=== PATIENT | male | born 1935 | race Caucasian/White ===

== ENCOUNTER 2018-04-15 05:49 | Inpatient (IN) | payer MEDICARE, OTHER ==
[2018-04-15] MEDS ORDERED: Ondansetron ODT 4 MG TAB ONE (06:52)
[2018-04-15] MEDS ORDERED: Mag-Al 1200 mg/1200 mg/30 ML UDCUP ONE ×3 (06:52→06:56)
[2018-04-15] MEDS ORDERED: Lidocaine Viscous Sol 2% 15 ml UD Cup ONE ×2 (06:53→09:50)
--- NOTE | 2018-04-15 08:21 | RAD ---
CHEST ONE VIEW: ABDOMEN TWO VIEWS: HISTORY: An 83-year-old male with a history of diarrhea. Medication reaction. FINDINGS: No significant acute intrathoracic disease. No free intraperitoneal air. Abnormally dilated small b owel loops with air-fluid levels, evidence for small bowel obstruction. Only minimal scattered gas a nd fecal material in a nondistended colon. No overt calculus. IMPRESSION: Abnormally dilated small bowel loops, evidence for small bowel obstruction. POS: [facility]
[2018-04-15 08:36] LABS: Hemoglobin 8.8 g/dL (14.0-18.0); Mean Corpuscular HGB CONC 30.9 g/dL (32.0-36.0); Mean Corpuscular Hemoglobin 22.5 pg (27.0-31.0); Mean Corpuscular Volume 72.7 fL (78.0-98.0); Mean Platelet Volume 6.5 fL (7.4-10.4); Platelet Count 435 thou/uL (130-400); RBC Distribution Width 15.5 % (11.5-14.5); White Blood Cell (WBC) Count 16.8 thou/uL (4.8-10.8)
[2018-04-15 08:49] LABS: ALT (SGPT) 45 U/L (8-55); AST (SGOT) 45 U/L (5-34); Albumin 3.8 g/dL (3.4-4.8); Alkaline Phosphatase 64 U/L (40-150); Anion Gap 19 mmol/L (10-20); BUN (Urea Nitrogen) 13 mg/dL (8.4-25.7); Bilirubin, Total 0.6 mg/dL (0.2-1.2); Calc. Creatinine Clearance 0 mL/min (70-130); Calcium 9.1 mg/dL (7.8-10.44); Carbon Dioxide 19 mmol/L (23-31); Chloride 95 mmol/L (98-107); Estimated GFR-MDRD 67; Globulin 2.5 g/dL (2.4-3.5); Glucose 133 mg/dL (83-110); Potassium 3.4 mmol/L (3.5-5.1); Protein, Total 6.3 g/dL (5.8-8.1); Sodium 130 mmol/L (136-145)
[2018-04-15 08:58] LABS: Band 20 % (5-11); Hypochromia SLIGHT = 6-15 cells (100X) (0-5/hpf); Lymphocytes 4 % (21-51); MDiff Complete? YES; Microcytosis SLIGHT = 6-15 cells (100X) (0-5/hpf); Monocytes 9 % (0-10); Neutrophil 67 % (42-75); PLT Morphology Comment Appears Increased; Polychromasia SLIGHT = 2-3 cells (100X) (0-2/hpf); Vacuoles SLIGHT
[2018-04-15] MEDS ORDERED: Ondansetron HCl/PF 4 MG/2 ML Vial ONE (09:49)
--- NOTE | 2018-04-15 10:17 | CT ---
CT ABDOMEN AND PELVIS WITH CONTRAST: Date: 04/15/18 HISTORY: Constipation. FINDINGS: Mild scarring in lung bases. There is contrast reflected through the esophagus. The GE junction is op en. There is a fat-containing ventral hernia. There are numerous dilated loops of small bowel, with transition point in the right lower quadrant, s eries 6, image 73. The small bowel loops measure up to 4.6 cm. There is small volume mesenteric fluid . 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 No free intraperitoneal gas. The aortoiliac contour is nonaneurysmal. Moderate atherosclerotic plaque. Numerous hypodensities of the liver are present. No retroperitoneal adenopathy. Spleen is unremarkable. Pancreas is unremarkable. IMPRESSION: Small bowel obstruction with transition point in the right lower quadrant of the abdomen with coordin ates above. Small bowel measures up to 4.6 cm with low grade mesenteric fluid. Surgical consultation is advised. POS: [facility]
--- NOTE | 2018-04-15 10:29 | RAD ---
SINGLE VIEW UPPER ABDOMEN: Date: 04/15/18 COMPARISON: Chest x-ray dated 02/02/14. HISTORY: NG tube placement. FINDINGS: Single view of the upper abdomen shows a NG tube with its tip in the stomach. There is a nonobstructe d bowel gas pattern. IMPRESSION: NG tube located in stomach. POS: [facility]
[2018-04-15] MEDS ORDERED: ISOVUE-370 76%-LOCM 1 ML ONE (10:50)
[2018-04-15] MEDS ORDERED: Iopamidol 370 76% 50 ML VIAL FS ONE (10:50)
[2018-04-15] MEDS ORDERED: Ondansetron HCl/PF 4 MG/2 ML Vial IVP PRN ×2 (12:50→16:07)
[2018-04-15] MEDS ORDERED: Acetaminophen 325 MG TAB PO PRN (12:51)
[2018-04-15] MEDS ORDERED: Ondansetron ODT 4 MG TAB PO PRN (12:51)
[2018-04-15] MEDS ORDERED: Sodium Chloride 0.9% 1,000 ML IV SCH (13:00)
--- NOTE | 2018-04-15 13:13 | HP ---
ADMITTING PHYSICIAN: Iker Galo M.D. HISTORY OF PRESENT ILLNESS: The patient is an 83-year-old male [facility] abdominal pain and discomfort. He felt like he has had problems now for several weeks. He was seen and evaluated by my partner, Dr. Diaz 1 week ago, p laced on Flagyl and Levaquin. He has continued to have difficulties and problems, specifically with nausea, no bowel movements, lack of gas. He was brought to the emergency room with increasing pain, increasing abdominal girth. He was seen and evaluated in the ER, found to have a small-bowel obstruc tion. He notes no other medical symptoms. No chest pain, shortness of breath, fever, nausea. No vo miting otherwise, but he definitely notes he has not had any type of bowel activity for the last 2-3 days now. ALLERGIES: He states PREDNISONE makes him feel loopy. Otherwise, no other allergies are noted. CURRENT MEDICATIONS: Lyrica 75 mg daily, finasteride 1 tablet daily, tamsulosin 1 tablet daily, amlo dipine 10 mg daily, hydrochlorothiazide 12.5 mg daily, aspirin 81 mg daily. PAST MEDICAL HISTORY: Positive for multiple facial skin cancer surgeries as well as a nasal surgery. Medical history positive for hypertension, history of shingles, benign prostatic hypertrophy, gastr oesophageal reflux disease. SOCIAL AND PERSONAL HISTORY: He is a . He does not smoke nor does he drink alcohol. He does live with his son here in [facility]. PHYSICAL EXAMINATION: VITAL SIGNS: BP 147/69, pulse 93, respirations 18, temperature 99.1, O2 sats 93%. GENERAL: He is alert, active, does not appear in any distress. HEENT: Normocephalic, atraumatic. Sclerae and conjunctivae are clear. NECK: Supple, full range of motion, no masses. LUNGS: Reveal bilateral breath sounds without wheezes, rales or rhonchi. HEART: Regular rate and rhythm without murmurs, gallops or rubs. ABDOMEN: Distended, protuberant. Bowel sounds are not present. There is no evidence of significant abdominal tenderness. He has slightly increased tympanitic sounds. EXTREMITIES: No clubbing, edema or cyanosis. LABORATORY DATA: White blood count 16.8, hemoglobin 8.8, hematocrit 28.4. Sodium 130, potassium 3.4 , chloride 95, CO2 19, BUN 13, creatinine 1.06. Stool guaiac is negative. IMPRESSION: 1. An 83-year-old male with small-bowel obstruction. 2. Anemia of unknown etiology. PLAN: 1. The patient has had a surgical consult placed with Dr. Franco. 2. He has had an NG tube suction and placed. Further surgical management will be detailed by the ferrara rgical consult. 3. IV fluids have been started. 4. With regards to his anemia, further workup may be deemed to be necessary. 5. It is noted the patient adamantly denies any history of blood per stool or melena at this time.
[2018-04-15 13:30] LABS: Lactic Acid 2.2 mmol/L (0.5-2.2)
[2018-04-15] MEDS: Sodium Chloride 0.9% 1,000 ML IV SCH ×2 (13:36→20:20)
[2018-04-15] MEDS ORDERED: Ondansetron ODT 4 MG TAB SL PRN (16:07)
--- NOTE | 2018-04-15 17:32 | PDOC.GSCN ---
Surgery Consult: [facility] - Consult details Date: 04/15/18 Time: 14:00 Reason for consult: small bowel obstruction Requesting physician: Iker Galo History of present illness: Mr Vega is an 83 yo male who presented to [facility] ER overnight with a cc of diarrhea, fatigue and nausea. Per pt his symptoms started approximately 2 weeks ago after eating pizza that he thought was bad. He noticed a change in his stool caliber, and diarrhea started shortly thereafter. He failed a trial of immodium and PPI and started abx from his PCP Fri. On Friday his diarrhea ceased and pt has not had a bowel movement since that time. He is unsure of when he last passed gas, but thinks there was some yesterday (04/14). Pt states nausea has been persistent and prevented him from sleep so he presented to the ER. Additionally the patient reports increasing abdominal distention, worsening fatigue and an 8lb weight loss. He denies fever, chills, cp, shortness of breath, barnard, hematochezia, melena, change in urinary habits. He was evaluated in the ER and found to have evidence of bowel obstruction on CT with air fluid levels and a transition point in the RLQ. Pt was admitted by medicine service and surgery was consulted 04/15/18 17:03 Surgery Consult: ROS - Review of Systems All systems: 10 systems reviewed and no additional complaints unless stated below. Surgery Consult: [facility] Source: patient Past Medical History: HTN, asthma, skin cancer s/p resection, BPH, GERD Past Surgical History: Nasal surgery, skin cancer removal. Pt specifically denied any history of abdominal surgery - Past Family History Family history: reviewed and not pertinent (Pt denied family history of cancer) - Past Social History Smoking Status: Never smoker Alcohol Use: none Living Situation: other (Pt lives with son) Surgery Consult: Exam - Vital signs Vital signs: Vital Signs - Most Recent Temp Pulse Resp BP Pulse Ox 98.4 F 84 16 121/69 94 L 04/15/18 15:31 04/15/18 15:31 04/15/18 15:31 04/15/18 12:45 04/15/18 15:31 - Physical Exam General: no distress, other (resting in bed) Eye: PERRL ENT: other (NGT in place) Neck: trachea midline Respiratory: clear to auscultation, normal expansion, normal respiratory effort Abdomen: non tender, soft, tender (Minimal RLQ pain), distended, other (no masses, signs of peritonitis, guarding or rigidity) Neurologic: other (No focal deficit is noted) Psychiatric: memory intact, oriented to time, oriented to person, oriented to place, speech is normal Surgery Consult: Meds - Medications Medications: Current Medications Acetaminophen (Tylenol) 650 mg PO Q4H PRN PRN Reason: Headache/Fever or Pain Stop: 04/15/18 23:00 Famotidine (Pepcid) 20 mg SLOW IVP BID MADHAV Sodium Chloride (Normal Saline 0.9%) 1,000 mls @ 125 mls/hr IV .Q8H MADHAV Last Admin: 04/15/18 13:36 Dose: 1,000 mls Ondansetron HCl (Zofran Odt) 4 mg SL Q8HR PRN PRN Reason: Nausea/Vomiting Ondansetron HCl (Zofran) 4 mg IVP Q6H PRN PRN Reason: Nausea/Vomiting Pneumococcal 13-Valent Conj Vacc (Prevnar) 0.5 ml IM .ONCE ONE Stop: 04/16/18 09:01 Sodium Chloride (Flush - Normal Saline) 10 ml IVF Q12HR MADHAV Sodium Chloride (Flush - Normal Saline) 10 ml IVF PRN PRN PRN Reason: Saline Flush - Allergies Allergies/Adverse Reactions: Allergies Allergy/AdvReac Type Severity Reaction Status Date / Time prednisone Allergy Verified 04/15/18 13:23 Surgery Consult: Results - Labs Result Diagrams: 04/15/18 08:19 04/15/18 08:19 Lab results: Laboratory Results WBC 16.8 thou/uL (4.8-10.8) H 04/15/18 08:19 RBC 3.90 mill/uL (4.70-6.10) L 04/15/18 08:19 Hgb 8.8 g/dL (14.0-18.0) L 04/15/18 08:19 Hct 28.4 % (42.0-52.0) L 04/15/18 08:19 MCV 72.7 fL (78.0-98.0) L 04/15/18 08:19 MCH 22.5 pg (27.0-31.0) L 04/15/18 08:19 MCHC 30.9 g/dL (32.0-36.0) L 04/15/18 08:19 RDW 15.5 % (11.5-14.5) H 04/15/18 08:19 Plt Count 435 thou/uL (130-400) H 04/15/18 08:19 MPV 6.5 fL (7.4-10.4) L 04/15/18 08:19 Neutrophils % (Manual) 67 % (42-75) 04/15/18 08:19 Band Neuts % (Manual) 20 % (5-11) H 04/15/18 08:19 Lymphocytes % (Manual) 4 % (21-51) L 04/15/18 08:19 Monocytes % (Manual) 9 % (0-10) 04/15/18 08:19 Neutrophils # Not Reportable 04/15/18 08:19 Lymphocytes # Not Reportable 04/15/18 08:19 WBC Morphology SLIGHT 04/15/18 08:19 Hypochromia SLIGHT = 6-15 cells (100X) (0-5/hpf) 04/15/18 08:19 Plt Morphology Comment Appears Increased H 04/15/18 08:19 Polychromasia SLIGHT = 2-3 cells (100X) (0-2/hpf) 04/15/18 08:19 Microcytosis SLIGHT = 6-15 cells (100X) (0-5/hpf) 04/15/18 08:19 Sodium 130 mmol/L (136-145) L 04/15/18 08:19 Potassium 3.4 mmol/L (3.5-5.1) L 04/15/18 08:19 Chloride 95 mmol/L (98-107) L 04/15/18 08:19 Carbon Dioxide 19 mmol/L (23-31) L 04/15/18 08:19 Anion Gap 19 mmol/L (10-20) 04/15/18 08:19 BUN 13 mg/dL (8.4-25.7) 04/15/18 08:19 Creatinine 1.06 mg/dL (0.6-1.3) 04/15/18 08:19 Estimated GFR (MDRD) 67 04/15/18 08:19 Glucose 133 mg/dL (83-110) H 04/15/18 08:19 Lactic Acid 2.2 mmol/L (0.5-2.2) 04/15/18 13:06 Calcium 9.1 mg/dL (7.8-10.44) 04/15/18 08:19 Total Bilirubin 0.6 mg/dL (0.2-1.2) 04/15/18 08:19 AST 45 U/L (5-34) H 04/15/18 08:19 ALT 45 U/L (8-55) 04/15/18 08:19 Alkaline Phosphatase 64 U/L (40-150) 04/15/18 08:19 Serum Total Protein 6.3 g/dL (5.8-8.1) 04/15/18 08:19 Albumin 3.8 g/dL (3.4-4.8) 04/15/18 08:19 Globulin 2.5 g/dL (2.4-3.5) 04/15/18 08: Albumin/Globulin Ratio 1.5 g/dL (1.2-2.2) 04/15/18 08:19 - Radiology Interpretation Abdominal x-ray Status: image reviewed by me (Images reviewed by myself and Dr Franco), report reviewed by me CT scan - abdomen Status: image reviewed by me (Image reviewed by myself and Dr Franco), report reviewed by me Surgery Consult: A/P - Problem (1) Bowel obstruction Current Visit: Yes Code(s): K56.609 - UNSP INTESTNL OBST, UNSP TO PARTIAL VERSUS COMPLETE OBST Status: Acute - Plan Plan: Keep NGT to LIS. Pt should remain NPO. Continue IVF hydration. Pts presentation , history and imaging suspicious for obstructive mass. Dr Franco has spoken with GI who recommends bowel rest overnight and plans for gentle bowel prep in AM. AM labs. PRN antinausea meds. Will continue to follow closely. Pt has been seen and examined by Dr Franco and myself.
[2018-04-15] MEDS: Famotidine/PF 20 mg/2ml Vial SLOW IVP SCH (20:14)
[2018-04-16] MEDS: Sodium Chloride 0.9% 1,000 ML IV SCH ×2 (00:52→14:46)
[2018-04-16 04:36] LABS: #Eosinphils 0.2 thou/uL (0.0-0.7); #Lymphocytes 1.3 thou/uL (1.20-3.40); #Monocytes 1.3 thou/uL (0.11-0.59); #Neutrophils 10.3 thou/uL (1.40-6.50); %Basophils 0.2 % (0.0-1.0); %Eosinophils 1.5 % (0.0-10.0); %Lymphocytes 9.6 % (21.0-51.0); %Monocytes 9.7 % (0.0-10.0); Hemoglobin 8.1 g/dL (14.0-18.0); Mean Corpuscular Hemoglobin 22.7 pg (27.0-31.0); Mean Corpuscular Volume 73.2 fL (78.0-98.0); Mean Platelet Volume 6.5 fL (7.4-10.4); Platelet Count 405 thou/uL (130-400); RBC Distribution Width 15.7 % (11.5-14.5); Red Blood Cell (RBC) Count 3.56 mill/uL (4.70-6.10)
[2018-04-16 05:05] LABS: Anion Gap 11 mmol/L (10-20); BUN (Urea Nitrogen) 9 mg/dL (8.4-25.7); Calc. Creatinine Clearance 61 mL/min (70-130); Calcium 8.3 mg/dL (7.8-10.44); Carbon Dioxide 26 mmol/L (23-31); Chloride 100 mmol/L (98-107); Estimated GFR-MDRD 78; Glucose 93 mg/dL (83-110); Magnesium 1.9 mg/dL (1.6-2.6); Phosphorus 2.4 mg/dL (2.3-4.7); Potassium 3.2 mmol/L (3.5-5.1); Sodium 134 mmol/L (136-145)
--- NOTE | 2018-04-16 05:32 | CON ---
DATE OF CONSULTATION: 04/15/2018 REFERRING DOCTOR: Dr. Mika Franco. REASON FOR CONSULTATION: Abdominal pain, small volar flexion, and possibility of colonic mass. HISTORY OF PRESENT ILLNESS: Mr. Luis Vega is a very pleasant, 83-year-old , male with history of transient diarrhea after he ate some pizza two weeks ago. Subsequently, he was found to have abdominal pain, some nausea, and poor appetite. He is also having constipation. He initially had diarrhea for a couple of days and then became constipated. The last BM he had was last Friday about five days ago. He was passing some small flatus yesterday, but he is not passing flatus anymore. After he was seen by Dr. Chito Diaz for outpatient and was given some empiric antibiotic therapy. The patient's symptoms persisted. He has had poor appetite, not able to eat well, and has constant nausea, vague abdominal pain. He came to the ER and had abdominal x- rays, which revealed evidence of SBO. Subsequently, he was sent for abdominal CAT scan. The CAT scan again showed dilated small bowel loops, and the transition zone is supposed to be in the right lower quadrant. The patient had an NG tube placement and he put out nearly about 1500 mL of bilious material. He is still passing some bilious material in the canister. Stopped passing his flatus. He has abdominal pain at the present time. He has no more nausea. The patient gives history of poor appetite and loss of weight about 8 pounds over probably about 2 weeks. Prior 2 weeks ago, he had no GI symptoms at all whatsoever. The patient has never had a colonoscopy, and there is no family history of colon cancer. The patient had no history of melena, hematochezia, etc. He has no relevant history. ALLERGIES: Intolerance to PREDNISONE, which makes him euphoric and hyper. SOCIAL HISTORY: Patient is . He really smoked pipe many years ago. He does not smoke cigarettes. He drinks two beers everyday. MEDICAL ILLNESSES: 1. Hypertension. 2. Benign prostatic hypertrophy. 3. Chronic acid reflux. 4. Multiple skin cancer removed. 5. Elevated PSA level and had three biopsies done, which _ all were negative for malignancy. SURGERIES: No major surgeries. FAMILY HISTORY: Both parents had heart disease. No family history of lung disease, cancer, CVA, etc. MEDICATIONS: List reviewed. REVIEW OF SYSTEMS: System reviewed 10-point systems: Constitutional: History of poor appetite, weight loss of about 8 pounds. No history of fever or chills. Respiratory system: No history of chronic cough, hemoptysis, dyspnea. Cardiovascular system: No chest pain, no palpitation, no dyspnea, orthopnea, or PND. Gastrointestinal: As stated in history of present illness. Genitourinary: History of nocturia and also history of urination. Musculoskeletal/endocrine/hematological: Not relevant. PHYSICAL EXAMINATION: GENERAL: Revealed a very pleasant, male, who appears very comfortable. He is in no distress. VITAL SIGNS: He is afebrile, pulse is 79, blood pressure 132/68. HEENT: Conjunctivae clear. NECK: Supple. No adenitis or thyromegaly noted. CARDIOVASCULAR SYSTEM: First and second heart sounds normal. LUNGS: Clear to auscultation. ABDOMEN: Soft to palpate. Abdomen is mildly distended. Abdomen is nontender. He does have bowel sounds active. EXTREMITIES: Reveal no edema. LABORATORY DATA: CBC shows WBC 16,800, hemoglobin 8.8, hematocrit 28.4, MCV 72.7, platelet count 435,000, polymorphs 67, bands 20, lymphocytes 4. Serum chemistries, sodium is 130, potassium 3.4, chloride 95, bicarbonate 19, BUN is 13, creatinine 1.06, glucose 133. Lactic acid 2.5, calcium 9.1. Bilirubin 0.6 , AST 45 upper limit of normal, ALT 45, alkaline phosphatase 64, albumin 3.8. Abdominal CAT scan shows: 1. Some hypodense lesions in the liver. 2. Dilation of small bowel loops and cancer as well as in the right lower quadrant. CLINICAL IMPRESSION: 1. An 83-year-old, male with small-bowel obstruction, it is unclear _ ____ surgery. There is a possibility that could be melena or lesions of small bowel or distention of small bowel with the colon. 2. Hypertension. 3. Prostatic hypertrophy. 4. Negative for ulcer biopsies. 5. Multiple skin cancer removal. 6. Chronic acid reflux. RECOMMENDATIONS: Continue with NG tube suction. The NG output is less, may consider Gastrografin small bowel series. The patient was reprepped for a colonoscopy and the prep was very difficult to get to the cecum, ileum and prepped colon. This was conveyed to the patient, and he is agreeable. We will follow up and make further recommendations. SUSAN
--- NOTE | 2018-04-16 07:34 | PRG ---
DATE OF SERVICE: 04/16/2018 SUBJECTIVE: Mr. Vega is resting well. He is feeling more comfortable. His abdomen is less bloat ed and distended. PHYSICAL EXAMINATION: VITAL SIGNS: Temperature 98.5, blood pressure 124/70. LUNGS: Clear. ABDOMEN: Soft, less distended, appears to be nontender. LUNGS: Clear. HEART: Without murmur. Regular rate and rhythm. LABORATORY DATA: Hemoglobin 8.1, hematocrit 26.1, sodium 134, potassium 3.2, chloride 100, carbon di oxide is 26. IMPRESSION: 1. Small-bowel obstruction, appears to be improved. 2. Anemia. PLAN: 1. Further GI workup has been planned today, possible have some type of colonoscopy done. 2. Further recommendations per Surgery and GI. 3. We will address hypokalemia, change IV fluids to normal saline with potassium.
[2018-04-16] MEDS ORDERED: Magnesium Sulfate 2 GM in Sodium Chloride 0.9% 100 ML IVPB SCH (09:00)
[2018-04-16] MEDS ORDERED: Prevnar 13-Val Conj/PF 0.5 ML SYRINGE IM ONE (09:00)
[2018-04-16] MEDS: 1/2 NS w/KCL 20 mEq 1,000 ML IV SCH ×2 (10:38→16:45)
[2018-04-16] MEDS: Famotidine/PF 20 mg/2ml Vial SLOW IVP SCH ×2 (11:43→21:04)
[2018-04-16] MEDS: Potassium Chloride 20 MEQ in Premix Bag 1 BAG IVPB SCH ×2 (12:03→14:05)
--- NOTE | 2018-04-16 15:38 | PRG ---
DATE OF SERVICE: 04/16/2018. SUBJECTIVE: Mr. Vega is an 83-year-old man who was admitted yesterday with abdominal pain, bloati ng, nausea and vomiting. This was associated with 8-pound weight loss as well as incidental microcyt ic hypochromic anemia. Small-bowel obstruction has been established on the basis of CT scan and clin ical examination. The patient reports no new problems today. OBJECTIVE: VITAL SIGNS: Today includes blood pressure 132/69, pulse 63, respirations 20, temperature 98.5 degre es Fahrenheit, oxygen saturation is 92% on room air. HEENT: Reveals normocephalic and atraumatic. HEART: Reveals regular rate and rhythm, no murmurs or gallops auscultated. LUNGS: Clear to auscultation bilaterally. Breathing regular and unlabored. ABDOMEN: Soft and moderately distended. He has moderate abdominal tenderness with deep palpation wi th no gross rebound tenderness present. Liver and spleen are nonpalpable below costal margin. NEUROLOGIC: Reveals no focal deficits present. LABORATORY DATA: Today includes CBC with 13,000 white blood cells, hemoglobin and hematocrit are sta ble at 8.1 and 26.1 respectively. Platelet count is 405,000. Metabolic profile: Sodium 134, potass ium 3.2, chloride is 100, bicarbonate 26, BUN is 9, creatinine 0.92, glucose is 93, magnesium 1.9, ph osphorus 2.4. IMPRESSION: 1. Acute small-bowel obstruction in an elderly man with no previous abdominal operations. 2. Chronic anemia. 3. Acute hypomagnesemia. 4. Acute hypokalemia. 5. Acute hypophosphatemia. PLAN: 1. Continue with bowel rest and nasogastric tube decompression. 2. Correct abnormal electrolytes. 3. The patient will be taken to the operating room tomorrow for exploratory laparotomy with indicate d procedures. I have advised the patient that his findings highly suggestive of a neoplastic process . Therefore, this warrants abdominal exploration. The patient indicates understanding of the information given. He has granted consent for the propose d surgical intervention.
[2018-04-16 15:58] LABS: INR-International Normal Ratio 1.2; PTT 31.7 SEC (22.9-36.1); Prothrombin Time 15.6 SEC (12.0-14.7)
[2018-04-17] MEDS: 1/2 NS w/KCL 20 mEq 1,000 ML IV SCH ×3 (03:16→20:30)
[2018-04-17 05:02] LABS: Anion Gap 18 mmol/L (10-20); BUN (Urea Nitrogen) 9 mg/dL (8.4-25.7); Calc. Creatinine Clearance 72 mL/min (70-130); Calcium 7.9 mg/dL (7.8-10.44); Carbon Dioxide 18 mmol/L (23-31); Chloride 103 mmol/L (98-107); Estimated GFR-MDRD Greater than 90; Glucose 70 mg/dL (83-110); Potassium 4.1 mmol/L (3.5-5.1); Sodium 135 mmol/L (136-145)
[2018-04-17] MEDS ORDERED: Famotidine/PF 20 mg/2ml Vial ONE (06:48)
[2018-04-17] MEDS ORDERED: Fentanyl 250 MCG/5 ML VIAL ONE (06:48)
[2018-04-17] MEDS ORDERED: Fentanyl 100 MCG/2 ML VIAL ONE ×4 (06:48→10:59)
[2018-04-17] MEDS ORDERED: Ertapenem 1 GM in Sodium Chloride 0.9% 100 ML IVPB SCH (07:15)
--- NOTE | 2018-04-17 08:13 | PRG ---
DATE OF SERVICE: 04/16/2018 HISTORY OF PRESENT ILLNESS: This is an 83-year-old, male admitted with abdominal pain, nausea, and vomiting, unable to assess by CAT scan. An NG tube is draining mostly bilious material. He is now passing flatus. He has abdominal pain. Initial plan was for him to have colonoscopy and possibly surgery. Because of a large volume of NG output, the patient is not able to have gastrograffin study.. He is also passing flatus. Dr. Franco talked to me this morning and informed me that he is planning to take him to surgery tomorrow. PHYSICAL EXAMINATION: GENERAL: He appears very comfortable. VITAL SIGNS: Afebrile. Pulse is 86, blood pressure 146/72. CARDIOVASCULAR SYSTEM: First and second heart sounds normal. ABDOMEN: Soft. Abdomen is more distended, but not soft, and nontender. He does have bowel sounds. LABORATORY DATA: The lab data today shows WBC 13,000, hemoglobin 8.1, hematocrit 26.1, MCV is 73.2. Chemistry panel: Sodium 134, potassium 3.2, chloride 100, bicarbonate 26, BUN is 6, creatinine 0.92, glucose is 93, calcium 8.3, phosphate 2.4, magnesium 1.9. PLAN: 1. Continue NG suction. 2. Laparotomy by Dr. Franco tomorrow. [facility]
[2018-04-17] MEDS ORDERED: Ondansetron HCl/PF 4 MG/2 ML Vial IVP PRN (09:25)
[2018-04-17] MEDS ORDERED: Promethazine HCl 25 MG/ML VIAL IM PRN (09:25)
[2018-04-17] MEDS ORDERED: Promethazine HCl 25 MG/ML VIAL SLOW IVP PRN (09:25)
--- NOTE | 2018-04-17 10:58 | OP ---
DATE OF OPERATION: 04/17/2018. PREOPERATIVE DIAGNOSES: 1. Acute small-bowel obstruction. 2. Hypochromic microcytic anemia associated with weight loss. POSTOPERATIVE DIAGNOSES: 1. Acute small-bowel obstruction. 2. Hypochromic microcytic anemia associated with weight loss. OPERATIONS PERFORMED: 1. Exploratory laparotomy. 2. Segmental small bowel resection with primary anastomosis. 3. 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 SURGEON: Mika Franco D.O. ANESTHESIA: General endotracheal. ESTIMATED BLOOD LOSS: 50 mL FLUIDS GIVEN: 1500 mL crystalloids. SPONGE AND INSTRUMENT COUNT: Certified as correct x2. COMPLICATIONS: None apparent at the time of operation. INDICATIONS FOR PROCEDURE: An 83-year-old man with no previous abdominal operations who presented to the emergency department with insidious onset abdominal pain associated with bloating, nausea, vomit ing, 8 pound weight loss and microcytic hypochromic anemia. CT scan of the abdomen and pelvis reveal ed distended loops of proximal small bowel with a clear transition zone. The patient was placed on b owel rest with nasogastric tube decompression for over 48 hours with no resolution. The NG tube was having a large output succus entericus of bilious content. Due to the fact that this patient has had no previous abdominal operations in the face of acute small-bowel obstruction, weight loss and anemi a, an obstructive neoplastic process was suspected for which the patient was brought to the operating room for laparotomy. 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 I did not see any external bands. There was no evidence of any extrinsic compressive masses. I also o bserved and irrigated. There was nodular with a bluish discoloration of the serosa on palpation and suspected the AVM. The area was excised and passed off the operative field for pathology. DESCRIPTION OF PROCEDURE: Informed consent obtained from the patient who was brought to the operatin g room and placed on spine position. Following general anesthesia, Briceño catheter was inserted and p laced at bedside drain. Abdomen is sterilely prepped and draped in usual fashion. A midline incisio n is made using #10 scalpel. The incision is carried through subcutaneous tissues maintaining hemost asis using cautery. Fascia incised in midline exposing the peritoneum beneath, which was grasped x2 with hemostats. The peritoneal cavity was sharply entered using Metzenbaum scissors. Incision was t hen extended superiorly and inferiorly. Bookwalter retractor was put in place to gain exposure. Sma ll bowel was then run from the ligament of Treitz down to terminal ileum. In the proximal ileum, the re is a constrictive band of clear transition zone noted. No extensive compressions were evident her e. All the bowel proximal to this constrictive band were markedly dilated and distal to this constri ctive internal band, bowel was markedly decompressed. A normal appendix is noted in the usual anatom ic location. I palpated the rest of the colon from the cecum through the ascending, transverse, desc ending, sigmoid colon and rectum. No palpable masses were present. The patient, however, does have sigmoid colon diverticulosis with no evidence of acute diverticulitis. The stomach is palpated full and the previous nasogastric tube was replaced with immediate decompression of the stomach. No palpa ble masses present. Liver is palpated free of any abnormality. Normal gallbladder was palpated in t he usual anatomic location. Spleen is palpated free of any masses. Finding no other pathology, I tu rned my attention to the transition zone in the proximal ileum. I created a rent through the mesente ry of the involved segment using a hemostat. The rent is created proximal and distal to this segment through which a SABAS stapler was introduced and bowel was divided. Mesentery of the specimen is ster ilely divided between clamps and ligated with a free tie of 2-0 silk. Specimen was passed off the op erative field and forward transmission to pathology. The staple end of this bowel were approximated in a [id number] fashion using interrupted sutures of 3-0 silk. Enterotomies were made at both apic es through which free ends of SABAS stapler was introduced and a functional end-to-end, but anatomic si de-to-side enteroenterostomy was perfected. Enterostomy was closed using another load of a SABAS stapl er. Resultant mesenteric defect was closed using interrupted sutures of 2-0 silk. I then rerun the bowel from the ligament of Treitz and down to the terminal ileum. The anastomosis was quite patent. Appr oximately 30 cm from the ligament of Treitz, there is a nodular mass that is palpated in the anterior surface of the jejunum there. The serosal surface is bluish in discoloration. I suspected this to be a site of an AVM given this patient's history of chronic microcytic anemia. I opened the bowel he re longitudinally excising this specimen which was passed off the operative field and forward transmi ssion to pathology to exclude AVM. The bowel is repaired here vertically using interrupted sutures o f 3-0 silk, which was then imbricated with another layer of interrupted sutures of 3-0 silk in a Lemb ert fashion. Abdominal cavity was then copiously irrigated clear with saline. Small bowel was retur bandar to normal anatomic location. Omentum was drawn over the remainder of the viscera. All sponges a nd instruments were removed and accounted for. Fascia is approximated in the midline using a running stitch of #1 single stranded PDS. Subcutaneous tissues irrigated clear with saline solution, perfec kota hemostasis using thermocautery. Subcutaneous tissues approximated using interrupted sutures of 2 -0 Vicryl. The skin was closed with millie. Sterile dressings were applied. The patient tolerated the operation without any apparent complication and was returned to recovery room in satisfactory co ndition.
[2018-04-17] MEDS: Famotidine/PF 20 mg/2ml Vial SLOW IVP SCH ×2 (11:36→20:31)
[2018-04-17] MEDS: Piperacillin/Tazobactam 3.375 GM in Sodium Chloride 0.9% 100 ML IVPB SCH ×3 (12:09→23:27)
[2018-04-17] MEDS: Acetaminophen 1,000 MG in Premix Bag 1 BAG IVPB SCH ×3 (12:50→23:27)
[2018-04-17] MEDS ORDERED: Glycopyrrolate 0.2 MG/ML 5 ML SYRINGE ONE (14:29)
[2018-04-17] MEDS ORDERED: PROPOFOL 200 MG/20 ML VIAL ONE (14:29)
[2018-04-17] MEDS ORDERED: Succinylcholine Chloride 20 MG/ML 10 ml SYRINGE FS ONE (14:29)
[2018-04-17] MEDS ORDERED: Ketorolac Tromethamine 30 MG/ML VIAL ONE (14:29)
[2018-04-17] MEDS ORDERED: Lidocaine 1% PF 5 ML VIAL ONE (14:29)
[2018-04-17] MEDS ORDERED: Ondansetron HCl/PF 4 MG/2 ML Vial ONE (14:29)
[2018-04-17] MEDS ORDERED: PHENYLEPHRINE-NS 100 MCG/ML 10 ML SYRINGE ONE (14:29)
--- NOTE | 2018-04-17 16:35 | PRG ---
DATE OF SERVICE: 04/17/2018 SUBJECTIVE: Mr. Vega has undergone surgery today for his bowel obstruction. Operative report see med to indicate that this was not related to any type of cancerous process. He arterial venous malformation causing problems. Nonetheless, he is back on the floor. He is awake and alert. He caceres s no complaints. PHYSICAL EXAMINATION: VITAL SIGNS: Temperature 98.2, pulse 89, respirations 18, O2 sats 93, blood pressure 133/69. LUNGS: Clear. HEART: Reveals no murmur. ABDOMEN: Somewhat distended, but soft. IMPRESSION: 1. Status post resection for small-bowel obstruction. 2. Anemia. PLAN: Continue current medical care. Surgery is at this time. Dr. Love will follow for m e through the weekend.
[2018-04-18 05:56] LABS: Anion Gap 19 mmol/L (10-20); BUN (Urea Nitrogen) 10 mg/dL (8.4-25.7); Calc. Creatinine Clearance 70 mL/min (70-130); Calcium 7.5 mg/dL (7.8-10.44); Carbon Dioxide 15 mmol/L (23-31); Chloride 106 mmol/L (98-107); Estimated GFR-MDRD Greater than 90; Glucose 60 mg/dL (83-110); Magnesium 1.8 mg/dL (1.6-2.6); Phosphorus 2.5 mg/dL (2.3-4.7); Potassium 4.5 mmol/L (3.5-5.1); Sodium 135 mmol/L (136-145)
[2018-04-18] MEDS: Piperacillin/Tazobactam 3.375 GM in Sodium Chloride 0.9% 100 ML IVPB SCH (06:48)
[2018-04-18] MEDS: Acetaminophen 1,000 MG in Premix Bag 1 BAG IVPB SCH ×2 (06:48→11:32)
[2018-04-18] MEDS ORDERED: Dextrose 5% in Water 1,000 ML IV PRN (07:29)
[2018-04-18 08:18] LABS: Band 12 % (5-11); Hemoglobin 8.4 g/dL (14.0-18.0); Lymphocytes 6 % (21-51); MDiff Complete? YES; Mean Corpuscular HGB CONC 30.5 g/dL (32.0-36.0); Mean Corpuscular Hemoglobin 22.8 pg (27.0-31.0); Mean Corpuscular Volume 74.6 fL (78.0-98.0); Microcytosis SLIGHT = 6-15 cells (100X) (0-5/hpf); Monocytes 6 % (0-10); Neutrophil 76 % (42-75); Ovalocytes SLIGHT = 2-5 cells (100X) (0-1/hpf); Platelet Count 429 thou/uL (130-400); RBC Distribution Width 15.9 % (11.5-14.5); Red Blood Cell (RBC) Count 3.69 mill/uL (4.70-6.10); Schistocytes SLIGHT = 2-5 cells (100X) (0-1/hpf); Toxic Granulation SLIGHT
[2018-04-18] MEDS: Famotidine/PF 20 mg/2ml Vial SLOW IVP SCH ×2 (08:54→21:15)
[2018-04-18] MEDS: Tamsulosin HCl 0.4 MG CAP PO SCH (08:54)
[2018-04-18] MEDS: 1/2 NS w/KCL 20 mEq 1,000 ML IV SCH (08:54)
--- NOTE | 2018-04-18 12:21 | PRG ---
DATE OF SERVICE: 04/18/2018 CONSULTING PHYSICIAN: Dr. Iker Galo. Postop day #1 for small bowel resection. SUBJECTIVE: The patient feels well. He feels sore, but denies chest pain, nausea and vomiting, tole rating the NG tube. He feels like he is having a gas movement, but not passing gas, no bowel movemen t. He is still n.p.o. at this time. PHYSICAL EXAMINATION: VITAL SIGNS: Temperature 97.9, pulse of 91, respirations 16, blood pressure 122/70, pulse ox is 97% on room air. GENERAL: He is awake and alert, in no acute distress. HEENT: Mucosa is moist. NECK: Supple. HEART: Regular rate and rhythm. LUNGS: Clear. ABDOMEN: Soft. Incisional soreness. Decreased bowel sounds. EXTREMITIES: With trace edema. LABORATORY DATA: Sodium 135; potassium 4.5; chloride 106; CO2 of 15, down from 18 yesterday; BUN and creatinine 10 and 0.81; serum glucose is 60, up to 79 with D5 fluid. Lactic acid was down to 2.2, c alcium 7.5, but his last albumin was 3.8. White blood cell count 19,000 today, hemoglobin and hemato crit 8.4 and 27.5 with microcytic indices, platelets of 429. ASSESSMENT AND PLAN: This is an 83-year-old gentleman, admitted for acute small-bowel obstruction, n ow status post small bowel resection. 1. Postoperative measures as per Dr. Franco and surgical team. We will continue NG decompression unt il his postoperative ileus resolves. 2. Microcytic-hypochromic anemia. We will continue to monitor. 3. Hypoglycemia, secondary to n.p.o. status. We will change fluids to D5 half normal saline. Furth er plan as per Surgery.
--- NOTE | 2018-04-18 13:52 | PRG ---
DATE OF SERVICE: 04/18/2018 SUBJECTIVE: This is an 83-year-old gentleman whom we are seeing in consultation for a small-bowel ob struction. The patient is postop day #1 status post exploratory laparotomy, segmental small bowel re section with primary anastomosis and excision of possible small bowel AVM. There were no acute overn ight events. Upon my evaluation this morning, the patient states that his pain is controlled. He caceres s had no nausea or vomiting. OBJECTIVE: VITAL SIGNS: Temperature 98.4, pulse 83, respirations 16, O2 sat 96% on room air, blood pressure 146 /73. GENERAL: Elderly male in no acute distress, resting in bed. HEENT: NG tube is in place and functioning. NECK: Supple. Trachea is midline. CHEST: Normal work of breathing. Symmetric rise. PULMONARY: 1500 on incentive spirometry. CARDIOVASCULAR: Regular rate and rhythm. GASTROINTESTINAL: Abdomen is soft with generalized minimal tenderness. Surgical dressing is clean, dry, and intact. Bowel sounds are positive. MUSCULOSKELETAL: Moves all extremities x4. NEUROLOGIC: No focal deficit noted. LABORATORY DATA: WBC 19.0, hemoglobin 8.4, hematocrit 27.5, platelet count 429, neutrophils 76, band s, 12%. Sodium 135, potassium 4.5, chloride 106, carbon dioxide 15, BUN 10, creatinine 0.81, glucose 79. Phosphorus 2.5, magnesium 1.8. Urine output overnight 750 mL, NG tube output 300 mL ASSESSMENT: Status post small-bowel obstruction, status post exploratory laparotomy, small bowel res ection with primary anastomosis and excision of AVM. PLAN: Continue NG tube to low intermittent suction. Encourage mobility and incentive spirometry. R echeck a.m. labs. The patient should remain n.p.o. for now. Await return of bowel function. Follow up pathology. Plan of care was discussed with the patient at bedside and all questions were answere d at the time of this dictation. The patient was discussed with attending.
[2018-04-18] MEDS: Dextrose 5 %-0.45 % NaCl 1,000 ML IV SCH (16:33)
[2018-04-18] MEDS: Enoxaparin Sodium 40 MG/0.4 ML SYRINGE SC SCH (21:15)
[2018-04-19] MEDS: Dextrose 5 %-0.45 % NaCl 1,000 ML IV SCH ×4 (02:33→23:09)
[2018-04-19 05:49] LABS: Anion Gap 10 mmol/L (10-20); BUN (Urea Nitrogen) 6 mg/dL (8.4-25.7); Calc. Creatinine Clearance 79 mL/min (70-130); Calcium 7.3 mg/dL (7.8-10.44); Carbon Dioxide 21 mmol/L (23-31); Chloride 105 mmol/L (98-107); Estimated GFR-MDRD Greater than 90; Glucose 126 mg/dL (83-110); Magnesium 1.8 mg/dL (1.6-2.6); Potassium 3.7 mmol/L (3.5-5.1); Sodium 132 mmol/L (136-145)
[2018-04-19 06:40] LABS: #Eosinphils 0.2 thou/uL (0.0-0.7); #Lymphocytes 1.2 thou/uL (1.20-3.40); #Neutrophils 13.6 thou/uL (1.40-6.50); %Basophils 0.1 % (0.0-1.0); %Eosinophils 1.3 % (0.0-10.0); %Lymphocytes 7.2 % (21.0-51.0); %Monocytes 6.4 % (0.0-10.0); %Neutrophils 85.1 % (42.0-75.0); Hemoglobin 7.9 g/dL (14.0-18.0); MDiff Complete? YES; Mean Corpuscular HGB CONC 29.6 g/dL (32.0-36.0); Mean Corpuscular Hemoglobin 21.9 pg (27.0-31.0); Mean Platelet Volume 6.1 fL (7.4-10.4); Microcytosis SLIGHT = 6-15 cells (100X) (0-5/hpf); Platelet Count 428 thou/uL (130-400); RBC Distribution Width 15.8 % (11.5-14.5)
[2018-04-19 07:56] LABS: ALT (SGPT) 20 U/L (8-55); AST (SGOT) 12 U/L (5-34); Albumin 2.9 g/dL (3.4-4.8); Alkaline Phosphatase 52 U/L (40-150); Anion Gap 10 mmol/L (10-20); BUN (Urea Nitrogen) 6 mg/dL (8.4-25.7); Bilirubin, Total 0.3 mg/dL (0.2-1.2); Calc. Creatinine Clearance 78 mL/min (70-130); Calcium 7.6 mg/dL (7.8-10.44); Carbon Dioxide 23 mmol/L (23-31); Chloride 104 mmol/L (98-107); Estimated GFR-MDRD Greater than 90; Glucose 137 mg/dL (83-110); Potassium 3.8 mmol/L (3.5-5.1); Protein, Total 4.9 g/dL (5.8-8.1); Sodium 133 mmol/L (136-145)
[2018-04-19 08:28] LABS: Magnesium 1.9 mg/dL (1.6-2.6)
--- NOTE | 2018-04-19 08:29 | PRG ---
PRIMARY CARE PHYSICIAN: Dr. Iker Galo. Postop day #2 for small bowel resection. SUBJECTIVE: The patient feels well. Continues to have some soreness, but denies chest pain, shortne ss of breath, nausea or vomiting. He feels rumbling in his abdomen, but not passing gas, no bowel mo vement. Still n.p.o. at this time. OBJECTIVE: VITAL SIGNS: Temperature 98.8, pulse of 88, respirations 18, blood pressure 148/78, pulse ox is 97% on room air. GENERAL: He is awake and alert, in no acute distress. NG tube appears to be in place to low intermi ttent suction. I's and O's are 2660 in, 1550 out. HEENT: Mucosa is moist. NECK: Supple. HEART: Regular rate and rhythm. LUNGS: Clear. ABDOMEN: Soft, occasional bowel sounds. Incisional soreness. EXTREMITIES: No edema. LABORATORY DATA: Sodium 133, potassium 3.8, chloride 104, CO2 of 23, BUN and creatinine are 6 and 0. 73, serum glucose of 137. Phosphorus level this morning was 1.0 with magnesium of 1.8, phosphorus is being repeated at this time. Albumin is 2.9. White blood cell count 16,000, hemoglobin and hematoc rit are 7.9 and 26.6 with microcytic indices, platelets of 428. ASSESSMENT AND PLAN: This is an 83-year-old gentleman with acute small-bowel obstruction, now status post small bowel resection. 1. Postoperative measures as per Dr. Franco and surgical team. Continue NG tube until his ileus reso lved. 2. Anemia. We will continue to monitor and consider transfusion if continues to drop. 3. Hypoglycemia, has resolved with dextrose in his IV fluids. 4. Hypophosphatemia, rechecking phosphate level now as well as vitamin D and intact PTH, likely seco ndary to n.p.o. status, as well as NG suction. I will replace as needed.
[2018-04-19] MEDS ORDERED: Potassium Phosphate 30 MMOL in Sodium Chloride 0.9% 500 ML IVPB SCH (08:30)
[2018-04-19] MEDS ORDERED: Furosemide 40 MG/4 ML VIAL SLOW IVP SCH (08:30)
[2018-04-19] MEDS: Tamsulosin HCl 0.4 MG CAP PO SCH (08:44)
[2018-04-19] MEDS: Famotidine/PF 20 mg/2ml Vial SLOW IVP SCH ×2 (08:44→20:50)
--- NOTE | 2018-04-19 10:36 | PRG ---
DATE OF SERVICE: 04/19/2018 SUBJECTIVE: Mr. Vega is an 83-year-old man who is postoperative day #2 status post exploratory la parotomy, segmental small bowel resection and primary anastomosis. Patient reports adequate pain con trol. He is having normal urinary function. He denies passing any flatus or having any bowel moveme nt. Denies any nausea or vomiting. Nasogastric tube returns 400 mL in the last 24 hours consisting of bilious effluent. OBJECTIVE: VITAL SIGNS: This morning includes blood pressure 138/75, pulse is 98, respirations 20, temperature is 98.5 degrees Fahrenheit, oxygen saturation is 98% on 2 liters by nasal cannula oxygen. HEART: Reveals regular rate and rhythm. No murmurs or gallops auscultated. LUNGS: Clear to auscultation bilaterally. Breathing is regular and unlabored. ABDOMEN: Soft and moderately distended. Incision is intact, clean, and dry. He has incisional tend erness to palpation with no rebound tenderness present. Bowel sounds in all four quadrants appear no rmoactive. EXTREMITIES: Reveals 2+ radial and pedal pulses bilaterally. No ankle edema is present. NEUROLOGIC: Examination reveals no focal deficits present. LABORATORY DATA: Laboratory findings today include CBC with 16,000 white blood cells, down from 19,0 00 yesterday. Hemoglobin and hematocrit are 7.9 and 26.6 respectively. Platelet count is 428,000. Metabolic profile; sodium 133, potassium 3.8, chloride is 104, bicarbonate is 23, BUN 6, creatinine 0 .73, glucose 137, magnesium is 1.9, phosphorus is 1.0. IMPRESSION: 1. Postoperative day #2, status post exploratory laparotomy and segmental small bowel resection. 2. Acute hypophosphatemia. 3. Acute hypokalemia. 4. Acute hypomagnesemia. 5. Chronic anemia. PLAN: 1. Correct abnormal electrolytes. 2. Patient will be transfused with 1 unit of packed red blood cell. 3. Patient will be provided with gentle diuresis today. 4. We will increase activity per physical and occupational therapy. Note that the blood transfusion is warranted as patient is complaining of profound fatigue. 5. His tiredness has been dated preoperatively due to his chronic anemia. 6. Once his bowel function returns, iron supplementation will be initiated. We will discontinue Fol ey catheter later today.
[2018-04-19 15:14] LABS: Hemoglobin 9.8 g/dL (14.0-18.0)
[2018-04-19] MEDS: Enoxaparin Sodium 40 MG/0.4 ML SYRINGE SC SCH (20:45)
[2018-04-20] MEDS ORDERED: Sodium Chloride 0.9% 500 ML IVPB SCH (01:00)
[2018-04-20] MEDS ORDERED: Sodium Chloride 0.9% 500 ML IV SCH (01:00)
[2018-04-20 05:31] LABS: #Eosinphils 0.2 thou/uL (0.0-0.7); #Lymphocytes 1.4 thou/uL (1.20-3.40); #Neutrophils 10.9 thou/uL (1.40-6.50); %Basophils 0.1 % (0.0-1.0); %Eosinophils 1.5 % (0.0-10.0); %Lymphocytes 10.4 % (21.0-51.0); %Monocytes 7.1 % (0.0-10.0); %Neutrophils 80.9 % (42.0-75.0); Hemoglobin 9.5 g/dL (14.0-18.0); Mean Corpuscular HGB CONC 31.1 g/dL (32.0-36.0); Mean Corpuscular Hemoglobin 23.6 pg (27.0-31.0); Mean Platelet Volume 6.3 fL (7.4-10.4); Platelet Count 440 thou/uL (130-400); RBC Distribution Width 19.1 % (11.5-14.5); Red Blood Cell (RBC) Count 4.02 mill/uL (4.70-6.10); White Blood Cell (WBC) Count 13.5 thou/uL (4.8-10.8)
[2018-04-20] MEDS: Dextrose 5 %-0.45 % NaCl 1,000 ML IV SCH (05:45)
[2018-04-20 06:05] LABS: ALT (SGPT) 20 U/L (8-55); AST (SGOT) 12 U/L (5-34); Albumin 2.8 g/dL (3.4-4.8); Alkaline Phosphatase 55 U/L (40-150); Anion Gap 11 mmol/L (10-20); BUN (Urea Nitrogen) 6 mg/dL (8.4-25.7); Bilirubin, Total 0.6 mg/dL (0.2-1.2); Calc. Creatinine Clearance 82 mL/min (70-130); Calcium 7.7 mg/dL (7.8-10.44); Carbon Dioxide 24 mmol/L (23-31); Chloride 102 mmol/L (98-107); Estimated GFR-MDRD Greater than 90; Globulin 2.2 g/dL (2.4-3.5); Glucose 113 mg/dL (83-110); Phosphorus 1.5 mg/dL (2.3-4.7); Potassium 3.6 mmol/L (3.5-5.1); Sodium 133 mmol/L (136-145)
[2018-04-20] MEDS ORDERED: Potassium Phosphate 30 MMOL in Sodium Chloride 0.9% 500 ML IVPB SCH (06:30)
[2018-04-20] MEDS: Acetaminophen 1,000 MG in Premix Bag 1 BAG IVPB SCH ×3 (08:28→20:39)
[2018-04-20] MEDS: Pantoprazole 40 MG VIAL IVP SCH (08:28)
[2018-04-20] MEDS: Tamsulosin HCl 0.4 MG CAP PO SCH (08:29)
--- NOTE | 2018-04-20 10:55 | PRG ---
DATE OF SERVICE: 04/20/2018 SUBJECTIVE: Mr. Vega is an 83-year-old man who is postoperative day #3 status post exploratory la parotomy and segmental small bowel resection. The patient reports adequate pain control this morning . He denies any nausea or vomiting. Nasogastric tube has returned 250 mL of slightly bile-tinged fl uid over the last 24 hours. The patient denies any flatus or bowel movement meanwhile. Urinary output has been adequate. OBJECTIVE: VITAL SIGNS: This morning includes blood pressure 150/72, pulse is 78, respiratory rate is 24, tempe rature is 98.3 degrees Fahrenheit, oxygen saturation is 98% on room air. HEENT: Reveals normocephalic and atraumatic. Pupils are equal, round, reactive to light and accommo dation. Patient has no jugular venous distention noted. HEART: Reveals regular rate and rhythm, no murmurs or gallops auscultated. LUNGS: Clear to auscultation bilaterally. His breathing is regular and unlabored. ABDOMEN: Soft with incisional tenderness to palpation. He has no gross rebound tenderness present. The incision otherwise remains intact, clean, and dry. NEUROLOGIC: Examination reveals no focal deficits present. LABORATORY DATA: Pertinent laboratory findings today includes CBC with 13,500 white blood cells, hem oglobin and hematocrit at 9.5 and 30.6 respectively, platelet count is 440,000. Metabolic profile; s odium 133, potassium is 3.6, chloride is 102, bicarbonate is 24, BUN is 6, creatinine is 0.69, glucos e 113, phosphorus is 1.5. IMPRESSION: 1. Postoperative day #3 status post exploratory laparotomy and segmental small bowel resection. 2. Acute hypokalemia. 3. Acute hypophosphatemia. PLAN: 1. Correct abnormal electrolytes. 2. We will clamp the NG tube and monitor residuals every 4 hours and consider discontinuation once _ ____ output is achieved. We will resume prehospitalization medications. Above findings and plan discussed with the patient who indicates understanding of the information giv en. I answered these questions.
[2018-04-20 11:23] VITALS: BMI 25.9
--- NOTE | 2018-04-20 18:15 | PRG ---
DATE OF SERVICE: 04/20/2018 Mr. Vega is doing well postoperatively, states he has had a bowel movement today; otherwise, no ot her medical complaints. PHYSICAL EXAMINATION: LUNGS: Clear. HEART: Reveals a regular rate and rhythm without murmurs, gallops or rubs. ABDOMEN: Soft. There are some bowel sounds that are present. IMPRESSION: Status post small-bowel obstruction with excision of obstructive process. PLAN: Continue current medications.
[2018-04-20] MEDS: Enoxaparin Sodium 40 MG/0.4 ML SYRINGE SC SCH (20:39)
[2018-04-20] MEDS: Pregabalin 75 MG CAP PO SCH (20:39)
[2018-04-21] MEDS: Acetaminophen 1,000 MG in Premix Bag 1 BAG IVPB SCH (02:03)
--- NOTE | 2018-04-21 07:47 | PRG ---
DATE OF SERVICE: 04/21/2018 SUBJECTIVE: Mr. Vega is asleep. He did not arouse when I examined him, I let him sleep. PHYSICAL EXAMINATION: VITAL SIGNS: Temperature 98 degrees, pulse 80, respirations 18, O2 sats 100% on room air, blood pres sure 140/78. LUNGS: Clear. HEART: Reveals no murmur. HEENT: NG tube has been removed. ABDOMEN: The bowel sounds are present and active. IMPRESSION: Status post small-bowel obstruction with exploratory laparotomy and bowel resection. PLAN: 1. Continue current care. 2. Hopefully can discharge soon.
[2018-04-21] MEDS ORDERED: traMADol HCl 50 MG TAB PO PRN ×2 (07:54)
[2018-04-21] MEDS: Pregabalin 75 MG CAP PO SCH ×2 (08:28→20:14)
[2018-04-21] MEDS: Hydrochlorothiazide 25 MG TAB PO SCH (08:29)
[2018-04-21] MEDS: Aspirin 81 mg Enteric Coated Tablet PO SCH (08:31)
[2018-04-21] MEDS: Amlodipine 10 MG TAB PO SCH (08:31)
[2018-04-21] MEDS: Tamsulosin HCl 0.4 MG CAP PO SCH (08:31)
[2018-04-21] MEDS: Pantoprazole 40 MG VIAL IVP SCH (08:33)
[2018-04-21] MEDS: Acetaminophen 500 MG TAB PO SCH ×3 (08:37→20:15)
[2018-04-21] MEDS: Dutasteride 0.5 MG CAP PO SCH (10:04)
[2018-04-21] MEDS: Enoxaparin Sodium 40 MG/0.4 ML SYRINGE SC SCH (20:14)
[2018-04-22] MEDS: Acetaminophen 500 MG TAB PO SCH ×4 (01:57→20:59)
[2018-04-22] MEDS ORDERED: Calcium Carbonate 500 MG ChewTAB ONE (02:48)
[2018-04-22] MEDS ORDERED: Calcium Carbonate 500 MG ChewTAB PO PRN (04:49)
[2018-04-22 08:56] LABS: #Eosinphils 0.1 thou/uL (0.0-0.7); #Lymphocytes 1.2 thou/uL (1.20-3.40); #Monocytes 0.9 thou/uL (0.11-0.59); #Neutrophils 9.8 thou/uL (1.40-6.50); %Basophils 0.1 % (0.0-1.0); %Eosinophils 1.1 % (0.0-10.0); %Lymphocytes 9.6 % (21.0-51.0); %Monocytes 7.3 % (0.0-10.0); %Neutrophils 81.9 % (42.0-75.0); Hemoglobin 11.1 g/dL (14.0-18.0); Mean Corpuscular HGB CONC 30.8 g/dL (32.0-36.0); Mean Corpuscular Hemoglobin 23.6 pg (27.0-31.0); Mean Corpuscular Volume 76.4 fL (78.0-98.0); Mean Platelet Volume 5.9 fL (7.4-10.4); Platelet Count 578 thou/uL (130-400); RBC Distribution Width 19.9 % (11.5-14.5); Red Blood Cell (RBC) Count 4.71 mill/uL (4.70-6.10); White Blood Cell (WBC) Count 11.9 thou/uL (4.8-10.8)
--- NOTE | 2018-04-22 09:14 | PRG ---
DATE OF SERVICE: 04/22/2018 SUBJECTIVE: Mr. Vega is up and eating. He verbalizes no complaints. He states he is feeling bet ter, feels like he is ready to go home. PHYSICAL EXAMINATION: VITAL SIGNS: Temperature 97.6, blood pressure 150/76. LUNGS: Clear. HEART: Reveals no murmur. IMPRESSION: 1. Status post bowel obstruction, exploratory laparotomy. 2. Anemia. PLAN: Probably, he can be discharged later today or early tomorrow.
[2018-04-22 09:15] LABS: Anion Gap 14 mmol/L (10-20); BUN (Urea Nitrogen) 10 mg/dL (8.4-25.7); Calc. Creatinine Clearance 78 mL/min (70-130); Calcium 8.5 mg/dL (7.8-10.44); Carbon Dioxide 24 mmol/L (23-31); Chloride 99 mmol/L (98-107); Estimated GFR-MDRD Greater than 90; Glucose 125 mg/dL (83-110); Magnesium 1.8 mg/dL (1.6-2.6); Potassium 3.9 mmol/L (3.5-5.1); Sodium 133 mmol/L (136-145)
[2018-04-22] MEDS: Tamsulosin HCl 0.4 MG CAP PO SCH (09:22)
[2018-04-22] MEDS: Hydrochlorothiazide 25 MG TAB PO SCH (09:22)
[2018-04-22] MEDS: Pregabalin 75 MG CAP PO SCH ×2 (09:22→20:58)
[2018-04-22] MEDS: Aspirin 81 mg Enteric Coated Tablet PO SCH (09:23)
[2018-04-22] MEDS: Amlodipine 10 MG TAB PO SCH (09:23)
[2018-04-22] MEDS: Dutasteride 0.5 MG CAP PO SCH (09:24)
[2018-04-22 16:09] VITALS: BP 122/77; TEMP 97.6
[2018-04-22] MEDS: Enoxaparin Sodium 40 MG/0.4 ML SYRINGE SC SCH (20:58)
== END 2018-04-22 21:15 | DRG 331 ==
LOC: ERS 05:49 → T4-B 12:41 → SURG A 04-17 11:50
PROVIDERS: ADMIT Family Medicine; ATTEND Family Medicine
PROC: 0DB80ZZ Excision of Small Intestine, Open Approach (ICD-10-PCS; principal; 2018-04-17)
DX: K56.609 Unspecified intestinal obstruction, unspecified as to partial versus complete obstruction (principal); E87.6 Hypokalemia; E83.39 Other disorders of phosphorus metabolism; E83.42 Hypomagnesemia; D64.9 Anemia, unspecified; E16.2 Hypoglycemia, unspecified; Q27.33 Arteriovenous malformation of digestive system vessel; I10 Essential (primary) hypertension; N40.0 Benign prostatic hyperplasia without lower urinary tract symptoms; K21.9 Gastro-esophageal reflux disease without esophagitis; Z85.828 Personal history of other malignant neoplasm of skin; Z82.49 Family history of ischemic heart disease and other diseases of the circulatory system
CPT/HCPCS: 36415; 36416; 36430; 74018; 74022; 74177; 80048; 80053; 82274; 82306; 83605; 83735; 83970; 84100; 85025; 85610; 85730; 86850; 86870; 86900; 86901; 86905; 86922; 88307; 93005; 96361; 96374; A4216; C9113; G8978-GP-CK; G8979-GP-CI; G8987-GO-CJ; G8988-GO-CI; J0131; J1335; J1610; J1650; J1885; J1940; J2001; J2270; J2405; J2543; J2704; J3010; J3475; J3480; J7050; P9016; Q0162; S0028

== ENCOUNTER 2019-02-18 10:18 | Day surgery (SDC) | payer MEDICARE, OTHER ==
[2019-02-17 13:59] VITALS: BMI 24.8
[~2019-02-18 10:18] MED LIST: Ondansetron PF 4 MG/2 ML Vial ONE; PROPOFOL 200 MG/20 ML VIAL ONE
[2019-02-18 11:13] LABS: Hemoglobin 11.5 g/dL (14.0-18.0)
[2019-02-18 11:35] LABS: Anion Gap 16 mmol/L (10-20); BUN (Urea Nitrogen) 13 mg/dL (8.4-25.7); Calc. Creatinine Clearance 53 mL/min (70-130); Calcium 9.1 mg/dL (7.8-10.44); Carbon Dioxide 25 mmol/L (23-31); Estimated GFR-MDRD 70; Glucose 109 mg/dL (83-110)
[2019-02-18 11:48] LABS: Chloride 100 mmol/L (98-107); Potassium 3.7 mmol/L (3.5-5.1); Sodium 137 mmol/L (136-145)
[2019-02-18] MEDS ORDERED: Bacitracin Zinc Ointment 30 gm TUBE ONE (13:02)
[2019-02-18] MEDS ORDERED: Lidocaine 1% w/Epinephrine 1:100K 20 ML VIAL ONE (13:02)
[2019-02-18] MEDS ORDERED: Fentanyl 100 MCG/2 ML VIAL ONE (13:05)
[2019-02-18] MEDS ORDERED: Silver Nitrate Application 1 EACH ONE (14:27)
--- NOTE | 2019-02-18 20:13 | EKG ---
Test Reason : PREOP Blood Pressure : / mmHG Vent. Rate : 070 BPM Atrial Rate : 070 BPM P-R Int : 186 ms QRS Dur : 080 ms QT Int : 372 ms P-R-T Axes : 060 020 071 degrees QTc Int : 401 ms Normal sinus rhythm Normal ECG When compared with ECG of 15-APR-2018 08:24, Premature ventricular complexes are no longer Present ST no longer depressed in Inferior leads ST no longer depressed in Lateral leads T wave amplitude has increased in Inferior leads T wave inversion no longer evident in Lateral leads Confirmed by JEANIE DIEGO, DR. North ([id number]) on 02/18/2019 8:13:08 PM Referred By: SANDER Confirmed By:DR. Mary Anne WARE MD
--- NOTE | 2019-02-19 13:30 | OP ---
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 POSTOPERATIVE DIAGNOSIS: Basal cell carcinoma of the nasal tip. PROCEDURE PERFORMED: Excision of basal cell carcinoma of the nasal tip measuring 1.5 cm with complex closure. PROCEDURE IN DETAIL: After consent was obtained, the patient was identified, brought to the operating room, placed on the operating table in supine position. General endotracheal anesthesia was obtained and the patient was positioned for surgery. Under microscopic visualization, the lesion was evaluated and delineated with a marking pen. We then infiltrated the area with 1% lidocaine with 1:100,000 epinephrine and created an elliptical incision. It measured approximately 1.5 cm. The lesion was then excised down to the level of the perichondrium and found to have clear margins. We then undermined the skin going down over to the cheek region and mobilized the nasal skin. We then advanced it into the defect and closed in the deep tissues with 5-0 Prolene and with the skin with 5-0 Monocryl and then the skin with 6-0 Prolene. Sterile dressing was applied. Retention sutures were placed with . Sterile dressing was then applied and he was awakened and taken to the recovery room in stable condition prior to discharge home. Job ID: [id number]
--- NOTE | 2019-02-26 05:53 | PQF ---
[facility] POST DISCHARGE CLINICAL DOCUMENTATION IMPROVEMENT CLARIFICATION FORM y Todays Date: 02/26/19 y Patients Name ALIVIA WEI y y Admit Date 02/18/19 y Disch Date 02/18/19 Twisting Operator Name Alexandria Ackerman Email: [email or web address] Cell: [phone] To be completed by Twisting Operator: Present Clinical Indicators - Signs / Symptoms Results and Location in Medical Record [ ] Documentation of: [ ] [ ] Documentation of: [ ] [ ] Documentation of: [ ] [ ] Documentation of: [ ] [ ] Risks [ ] [ ] [ ] Treatment [ ] Excision of basal cell carcinoma of the nasal tip measuring 1.5cm with complex closure. Query for excised margin size. [ ] [ ] To be completed by Physician: BHARTI DAWSON The documentation in this patients record requires clarification to ensure coding compliance and accuracy. Check the appropriate box and include in your discharge summary. [ ] [ ] [ ] [ ] Please check this box if this does not apply to this patient [ ] Unable to determine [ ] Other diagnosis: Review the following information and exercise your independent professional judgment in responding to the clarification. Based upon the clinical findings, risk factors, and treatment, please clarify if you are treating one of the above probable or suspected diagnoses. Physician Signature: Date Time MTDD
== END 2019-02-18 16:43 | disposition home or self-care (01) ==
LOC: SDC 10:18
PROVIDERS: ATTEND Specialist
PROC: 0HB1XZZ Excision of Face Skin, External Approach (ICD-10-PCS; principal; 2019-02-18)
PROC: 0HQ1XZZ Repair Face Skin, External Approach (ICD-10-PCS; 2019-02-18)
DX: C44.311 Basal cell carcinoma of skin of nose (principal); J45.909 Unspecified asthma, uncomplicated; Z79.82 Long term (current) use of aspirin; Z79.51 Long term (current) use of inhaled steroids; Z79.899 Other long term (current) drug therapy
CPT/HCPCS: 36415; 80048; 85014; 85018; 88305; 88331; 88332; 93005; 93010; J2001; J2405; J2704; J3010